=== PATIENT | male | born 1955 | race Caucasian/White ===

== ENCOUNTER 2018-09-15 05:13 | Observation (INO) | payer OTHER ==
[2018-09-15] VITALS (27 sets, daily range): BP systolic 113–142; BP diastolic 63–89; PULSE 68–98; RESP 14–23; Ht 165.1 cm; Wt 104.7 kg
[~2018-09-15] VITALS: Ht 165.1 cm; Wt 104.7 kg
[2018-09-15] MEDS ORDERED: LACTATED RINGER'S 1,000 ML IV SCH (06:30)
--- NOTE | 2018-09-15 06:39 | PREAC ---
Date/Time of Note Date/Time of Note DATE: 09/15/18 TIME: 06:39 Anesthesia Eval and Record Evaluation Time Pre-Procedure Interview DATE: 09/15/18 TIME: 06:39 Age 62 Sex male NPO: 8 hrs Preoperative diagnosis Posttraumatic degenerative jiont disease subtalar joint, left ankle Planned procedure Operative arthroscopy, arthrodesis subtalar, possible open subtalar fusion Past Medical History Past Medical History: Includes GI: Obesity Surgery & Anesthesia Issues No known issue Meds Anticoagulation: No Beta Adam within 24 hr: No Reason Beta Adam not given: Pt. not on B-Adam No Active Prescriptions or Reported Meds Current Medications Lactated Ringer's 1,000 ml @ 30 mls/hr Q24H IV ; Start 09/15/18 at 06:30 Meds reviewed: Yes Allergies Coded Allergies: No Known Allergy (Unverified , 09/15/18) Allergies Reviewed: Yes Labs/Studies Labs Reviewed: Reviewed by anesthesiologist test: N/A Pre-procedure Exam Last vitals Vital Signs Date Temp Pulse Resp B/P (MAP) Pulse Ox O2 O2 Flow FiO2 Time Delivery Rate 09/15/18 97.8 71 18 129/89 98 Room Air 05:53 (102) Airway: Adequate mouth opening Mallampati: Mallampati II Teeth: Normal Lung: Normal Heart: Normal ASA Physical Status ASA physical status: 2 Emergency: None Planned Anesthetic General/MAC: ETT Planned Pain Management Single shot nerve block Pre-operative Attestations Prior to commencing anesthesia and surgery, the patient was re-evaluated, there was verification of: *The patient's identity *The results of appropriate recent lab work and preoperative vital signs *The above evaluation not changing prior to induction *Anesthetic plan, risk benefits, alternative and complications discussed with patient/family; questions answered; patient/family understands, accepts and wishes to proceed. SRUTHI FAROOQ MD Sep 15, 2018 06:39
[2018-09-15] MEDS ORDERED: PROPOFOL 20 ML ONE ×2 (07:03→08:36)
[2018-09-15] MEDS ORDERED: SUCCINYLCHOLINE CHLORIDE 100 MG/5 ML SYG IV ONE ×2 (07:03→08:36)
[2018-09-15] MEDS ORDERED: NEOSTIGMINE 3 MG/3 ML SYRINGE ONE ×2 (07:03→09:49)
[2018-09-15] MEDS ORDERED: LIDOCAINE 2% (SDV) 5 ML INJ ONE (07:03)
[2018-09-15] MEDS ORDERED: ROCURONIUM 50 MG INJ ONE ×5 (07:03→11:43)
[2018-09-15] MEDS ORDERED: GLYCOPYRROLATE 0.4 MG INJ ONE ×4 (07:03→09:49)
[2018-09-15] MEDS ORDERED: ROPIVACAINE 0.5 % 30 ML VIAL ONE ×3 (07:05→10:36)
[2018-09-15] MEDS ORDERED: CEFAZOLIN 1 GM INJ ONE ×3 (07:08→11:31)
[2018-09-15] MEDS ORDERED: FENTAnyl 50 MCG/ML VIAL ONE (07:54)
[2018-09-15] MEDS ORDERED: LIDOCAINE 100 MG SYRINGE ONE (08:36)
[2018-09-15] MEDS ORDERED: LABETALOL HCL 20MG INJ ONE ×3 (08:36→14:06)
[2018-09-15] MEDS ORDERED: NEOSTIGMINE 10 MG INJ ONE (08:36)
[2018-09-15] MEDS ORDERED: SUGAMMADEX SODIUM 200 MG/2 ML VIAL IV ONE (08:41)
[2018-09-15] MEDS ORDERED: EPHEDrine SULFATE 50 MG/5 ML SYG ONE (08:47)
[2018-09-15] MEDS ORDERED: ONDANSETRON 4 MG INJ ONE ×2 (09:59→14:56)
[2018-09-15] MEDS ORDERED: POLYMYXIN/BACITRACIN 1L IRRIG ONE (10:36)
[2018-09-15] MEDS ORDERED: EPHEDrine SULFATE 50 MG/5 ML SYG IV PRN (12:00)
[2018-09-15] MEDS ORDERED: HYDROmorphONE 1 MG/5 ML IV SYRINGE IV PRN ×3 (12:00)
[2018-09-15] MEDS ORDERED: hydrALAzine 20 MG INJ IV PRN (12:00)
[2018-09-15] MEDS ORDERED: MEPERIDINE 25 MG INJ IV PRN (12:00)
[2018-09-15] MEDS ORDERED: ONDANSETRON 4 MG INJ IV PRN ×2 (12:00→13:00)
[2018-09-15] MEDS ORDERED: MIDAZOLAM 1 MG/ML 2 ML INJ IV PRN (12:00)
[2018-09-15] MEDS ORDERED: DIPHENHYDRAMINE 50 MG INJ IV PRN (12:00)
[2018-09-15] MEDS ORDERED: LABETALOL HCL 20MG INJ IV PRN (12:00)
[2018-09-15] MEDS ORDERED: METOCLOPRAMIDE 10 MG INJ IV PRN (12:00)
[2018-09-15] MEDS ORDERED: FENTAnyl 50 MCG/ML VIAL IV PRN ×3 (12:00)
[2018-09-15] MEDS ORDERED: OXYCODONE/ACETAMINOPHEN (5/325) TAB PO PRN ×2 (12:00)
--- NOTE | 2018-09-15 12:51 | OPPN ---
Date/Time of Note Date/Time of Note DATE: 09/15/18 TIME: 12:48 Operative Report Preoperative Diagnosis Right subtalar end stage post-traumatic arthritis Postoperative Diagnosis Right subtalar end stage post-traumatic arthritis Operation/Procedure Performed Right subtalar arthroscopic debridement, arthrodesis with Ignite Surgeon see signature line investigative assistant Bernardo Velasquez MD Anesthesia: general Estimated blood loss: 10 - 50 ml's Transfusion Required none Specimen none Grafts/Implants 2 x 7.3mm screwsnone Complications none LUPILLO DIXON MD Sep 15, 2018 12:51
[2018-09-15] MEDS ORDERED: HYDROmorphONE 0.2 MG/ML PCA IV SCH (13:00)
[2018-09-15] MEDS ORDERED: BISACODYL 10 MG SUPP PR PRN (13:00)
[2018-09-15] MEDS ORDERED: morphine 10 MG INJ IV PRN (13:00)
[2018-09-15] MEDS ORDERED: DIPHENHYDRAMINE 25 MG CAP PO PRN (13:00)
[2018-09-15] MEDS: CEFAZOLIN 1 GM/50 ML (PMX) 50 ML IVPB SCH ×2 (13:14→20:33)
[2018-09-15] MEDS: SOD CHLORIDE 0.9% 1,000 ML IV SCH ×3 (13:17→22:51)
--- NOTE | 2018-09-15 13:43 | PAC ---
Date/Time of Note Date/Time of Note DATE: 09/15/18 TIME: 13:42 Post-Anesthesia Notes Post-Anesthesia Note Last documented vital signs Vital Signs Date Temp Pulse Resp B/P (MAP) Pulse Ox O2 O2 Flow FiO2 Time Delivery Rate 09/15/18 94 23 116/64 97 Nasal 2.0 12:25 (81) Cannula 09/15/18 99.0 12:20 Activity: WNL Respiratory function: WNL Cardiovascular function: WNL Mental status: Baseline Pain reasonably controlled: Yes Hydration appropriate: Yes Nausea/Vomiting absent: Yes SRUTHI FAROOQ MD Sep 15, 2018 13:43
--- NOTE | 2018-09-15 13:46 | OPR ---
DATE OF OPERATION: PREOPERATIVE DIAGNOSES: 1. Status post calcaneal fracture, right subtalar joint. 2. Degenerative joint disease of the subtalar joint. POSTOPERATIVE DIAGNOSES: 1. Status post calcaneal fracture, right subtalar joint. 2. Degenerative joint disease of the subtalar joint. OPERATIONS PERFORMED: 1. Arthroscopy, right subtalar joint soft tissue distraction. 2. Extensive debridement of the subtalar joint, removal of all arthritic cartilage and debris. 3. Injection of Ignite and Augment to the subtalar joint to facilitate fusion. 4. Insertion of two 7.3 AO cannulated screws across the arthrodesis site. 5. Use of fluoroscopy to verify position and alignment of the guide pins and screws. 6. Short-leg cast. Extremely complex difficult procedure because the patient's subtalar joint was very tight. We had to start with a 1.9 mm arthroscope to even get in there and then slowly advanced so that we can eventually get a 4 mm instrument into the subtalar joint. Because of the complexity and narrowing of the joint and difficulty doing the surgery, an additional 60 minutes of time was spent. In addition, the patient's BMI was 38 and made it more difficult as well (22). SURGEON: Lupillo Méndez MD GENERAL OFFICE ASSOCIATE: Bernardo Velasquez MD ANESTHESIA: General with popliteal block. TOURNIQUET TIME: 127 minutes. DESCRIPTION OF PROCEDURE: The patient was taken to the operating room and placed in supine position. Satisfactory popliteal block was given. Satisfactory general anesthesia was administered, 2 grams Ancef intravenously. The left thigh was secured in the thigh montes. Arms were carefully padded. The left leg was prepped and draped in usual manner. Superficial peroneal nerve could not be marked out. Tourniquet was inflated to 250 mmHg and soft tissue distraction was applied. Standard anterior lateral, central and posterolateral portals were made using the fluoroscope. Because the joint was so tight, it was very difficult to find the subtalar joint. Once we found the subtalar joint, we entered it with a 1.9 mm scope that was largest we could get in. We verified where the needle was posteriorly, started shaving and removing the soft tissue then removing the arthritic cartilage from the posterior portion of the posterior subtalar joint. Once we were able to get the arthritic cartilage out then we were able switch to 2.7 mm 30-degree arthroscope. Sequentially using different angled curettes and justin, all the articular cartilage was removed from the undersurface of the talus and the superior surface of the calcaneus so that the subtalar joint articular cartilage was completely removed from posterior to anterior. Soft tissue was removed from the sinus tarsi. Soft tissue was exposed in the sinus tarsi completely. The lateral gutter was completely debrided and exposed. After all the bone was completely exposed and all the articular cartilage was removed, a bur was used to remove approximately 1 mm of bone from the calcaneus and the talus. Multiple "spot welds" were made to facilitate bleeding. Multiple drill holes were made with 0.045 K-wire both the talus and the calcaneus. Osteotome was used to shingle with multiple holes in the talus and calcaneus. Good bleeding bone was seen. Also, multiple microfracture holes were placed as well. The arthroscope was then visualized the good bleeding surfaces. The fluid was turned off. The portals were closed with 3-0 black nylon. The Ignite demineralized bone and Augment were inserted, mixed with blood into the fusion site. The holes were then sealed with 3-0 black nylon. Tourniquet was released. The leg was then repositioned and the thigh support was removed. After repositioning the leg, all new gowns and gloves were used. Ankle was reprepped and draped. All new instruments were used. Incision was made medial to the anterior tibial tendon. Dissection was carried down to subcutaneous tissue. The capsule was opened. Using the fluoroscope, we temporary placed a 7.3 guide pin from the AO cannulated screw set, approximately in the center of the talar neck, checked in the lateral and was in good position. The vector drill guide was used to insert the guide pin out the calcaneus, was checked in AP and lateral position and was good position and alignment. The length of the guide pin was measured. The hole was partially drilled across the subtalar joint and then a 7.3 mm AO cannulated screw was inserted from the heel up into the talus. Extreme caution was made not to violate the articular cartilage or to go out the talus at all. It was little short purposely. Excellent fixation was obtained and was checked in AP and lateral planes and looked to be in good position and alignment. A second guide pin was placed more dorsally and more laterally, was checked in AP and lateral positions, partially drilled. After the guide pin was checked in AP and lateral positions, a hole was partially drilled across the subtalar joint and the screw was inserted, 7.3 AO cannulated screw set. Again, excellent fixation was obtained. Excellent compression was made across the subtalar joint and the screws were well positioned in AP and lateral positions. The wounds were irrigated with antibiotic solution. The capsule was closed with a running 2-0 undyed Vicryl. The subcutaneous tissue closed with 2-0 and 3-0 undyed Vicryl and the skin with 4-0 black nylon. The heel incisions were closed with 3-0 black nylon. A saphenous nerve block was done 0.5% ropivacaine. Compression was applied with short-leg cast in neutral position. Interprocedure sponge and needle count was correct. The patient tolerated procedure well and a cast was split in the recovery room. DEAN [employer] ORTHOPEDIC SURGEON: During the procedure, an pastrycook's assistant orthopedic surgeon was used at my request. The pastrycook's assistant helped with distracting the subtalar joint, positioning the arthroscope and inserting the instruments and also inserting the screws while I held the subtalar joint reduced. Without a skilled orthopedic surgeon assisting me, this could not have done and thus should be compensated appropriately. Dictated By: LUPILLO JOSEPH/BRITTANY Conf#: [id number] DID#: [id number] MAIN
[2018-09-15] MEDS ORDERED: METOCLOPRAMIDE 10 MG INJ ONE (14:56)
[2018-09-15] MEDS ORDERED: ACETAMINOPHEN 325 MG TAB PO PRN (20:30)
[2018-09-15] MEDS: SENNA/DOCUSATE NA (8.6MG/50MG) TAB PO SCH (20:31)
[2018-09-16] VITALS: BP 121/71; PULSE 95; RESP 18
[2018-09-16] MEDS: CEFAZOLIN 1 GM/50 ML (PMX) 50 ML IVPB SCH ×2 (04:50→12:55)
[2018-09-16 07:37] VITALS: BP 114/63; PULSE 78; RESP 19
[2018-09-16] MEDS: SENNA/DOCUSATE NA (8.6MG/50MG) TAB PO SCH (08:50)
[2018-09-16] MEDS: SOD CHLORIDE 0.9% 1,000 ML IV SCH (08:51)
[2018-09-16] MEDS: OXYCODONE/ACETAMINOPHEN (5/325) TAB PO PRN ×2 (09:29→12:55)
[2018-09-16 15:10] VITALS: BP 121/68; PULSE 88; RESP 19
[2018-09-16] MEDS ORDERED: RIVAROXABAN 10 MG TABLET PO SCH (17:55)
[2018-09-17] MEDS ORDERED: MAGNESIUM HYDROXIDE 30ML CUP PO SCH (21:00)
--- NOTE | 2018-09-17 23:15 | DS ---
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 SURGERY: On 09/15/2018, arthroscopy of left subtalar joint with extensive debridement, injection of allograft bone and insertion of screws to fuse the ankle. HISTORY OF PRESENT ILLNESS: The patient is a 62-year-old male with a long history of the calcaneal f racture who has developed severe post-traumatic arthritis, admitted now for fusion. PAST MEDICAL HISTORY: See the history and physical record. PHYSICAL EXAMINATION: Normal except the orthopedic exam, which revealed pain along the subtalar join t with decreased range of motion and strength. LABORATORY: Normal. Chest x-ray was stable. The patient was cleared medically. HOSPITAL COURSE: The patient was taken to the operating room and underwent the above-mentioned proce dure. Postoperatively, he was up ambulating the first postoperative day. He was able to be discharg ed on nonweightbearing with pain medication and antibiotics and to be followed in the office in 1 wee k. He was discharged in stable condition. Dictated By: LUPILLO JOSEPH/BRITTANY Conf#: [id number] DID#: [id number]
== END 2018-09-16 15:30 | disposition home health service (06) ==
LOC: SDS 05:13 → REC 12:51 → MS1 13:58
PROVIDERS: ADMIT Orthopaedic Surgery; ATTEND Orthopaedic Surgery
DX: M19.172 Post-traumatic osteoarthritis, left ankle and foot (principal); Z87.891 Personal history of nicotine dependence
CPT/HCPCS: 28725; 29906; 73610; 97116; 97161; 97530; C1713; G0378; J0690; J1170; J2405; J2710; J2795; J3010; J7030; J2001; J2765